=== PATIENT | female | born 1995 | race Caucasian/White ===

== ENCOUNTER 2021-02-23 01:57 | Emergency (ER) | payer OTHER ==
[2021-02-23 02:16] VITALS: BP 101/53; PULSE 66; TEMP 97.3; BMI 42.5
[2021-02-23] MEDS ORDERED: LIDOCAINE HCL 1%, 10 MG/ML (20ML VIAL) ONE (02:44)
[2021-02-23] MEDS ORDERED: CLINDAMYCIN HCL 300 MG CAPSULE PO ONE (03:11)
[2021-02-23] MEDS ORDERED: CLINDAMYCIN HCL 150 MG CAPSULE (FP) ONE (03:13)
== END 2021-02-23 03:20 | disposition home or self-care (01) ==
LOC: JER 01:57
DX: L03.011 Cellulitis of right finger (principal)
CPT/HCPCS: 99283-25